=== PATIENT | male | born 1955 | race Caucasian/White ===

== ENCOUNTER 2019-10-23 10:15 | Outpatient (REF) | payer MEDICAID, SELFPAY ==
[2019-10-23 21:28] LABS: HCT 44.6 % (40.0-50.0); HGB 15.5 g/dL (13.5-17.5); Mean Corp. HGB Concentration 34.8 g/dL (32.0-36.0); Mean Corpuscular Hemoglobin 31.7 pg (27.0-33.0); Mean Corpuscular Volume 91.2 fL (80-95); Mean Platelet Volume 11.1 fL (8.0-11.0); Platelet Count 177 x1000/uL (130-400); RBC 4.89 m/cumm (4.50-6.00); RBC Distribution Width 12.9 % (11.8-14.1); White Blood Cell Count 4.66 k/cumm (4.4-10.8)
[2019-10-23 21:29] LABS: ALT 28 U/L (16-63); AST 21 U/L (15-37); Albumin 3.8 g/dL (3.4-5.0); Alkaline Phosphatase 54 U/L (46-116); Anion Gap 9.7 mmol/L (3-11); BUN 10 mg/dL (7-18); Bilirubin, Total 0.6 mg/dL (0.2-1.0); CO2 25.3 mmol/L (21.0-32.0); CREATININE 0.91 mg/dL (0.70-1.30); Chloride 104 mmol/L (98-107); Glucose 113 mg/dL (74-106); Lipase 116 U/L (73-393); Potassium 4.2 mmol/L (3.5-5.1); Sodium 139 mmol/L (136-145); Total Protein 7.3 g/dL (6.4-8.2)
== END 2019-10-23 10:35 ==
LOC: NCHCN 10:15
PROVIDERS: PCP Internal Medicine; Visit Provider Internal Medicine
DX: I10 Essential (primary) hypertension (principal); E66.9 Obesity, unspecified; I25.10 Atherosclerotic heart disease of native coronary artery without angina pectoris; K86.89 Other specified diseases of pancreas
CPT/HCPCS: 80053; 83690; 85027

== ENCOUNTER 2019-11-03 03:43 | Outpatient (CLI) | payer MEDICAID, SELFPAY ==
--- NOTE | 2019-11-03 | DI.CT_ITS ---
EXAM: CT ABDOMEN WO/W CLINICAL HISTORY: OTHER DISEASE OF PANCREAS,K86.89,F/U 02/02/18 [facility] [place]/U PANCREATIC MASS TECHNIQUE: COMPARISON: CT CT ANGIOGRAM ABDOMEN AND PELVIS W CONTRAST (GENERIC) from 12/21/[address] ABD W 1HR PREP from 02/02/2018 FINDINGS: CT examination of the upper abdomen was performed utilizing noncontrast scanning followed arterial an d venous phase imaging with intravenous infusion 100 cc Omnipaque 350 and ingestion dilute barium. Images obtained through the lung bases are unremarkable. The liver and spleen appear normal. Gallbl adder wall appears thickened, there is poor delineation of the gallbladder wall from surrounding fat and the gallbladder lies directly adjacent to hepatic flexure of the colon, no fat plane is clearly d istinguishable at this site. No biliary dilatation seen. Previous scan of January 2018 showed 2 hyperenhancing posterior pancreatic head lesions, measuring 1 4 x 16 millimeters and 13 x 11 millimeters in diameter respectively. On today's examination these me asure about 15 x 18 millimeters in diameter for the lateral lesion 13 x 19 millimeters for the medial lesion. These arm mildly lobulated but well-circumscribed with no gross surrounding fat invasion. No significant portal or peripancreatic adenopathy. Pancreas is otherwise unremarkable. No pancreat ic ductal dilatation. There is an abdominal aortic aneurysm measuring 62 x 48 millimeters in diameter with an aorto iliac e ndograft in place. No evidence of leakage. No retroperitoneal adenopathy. Adrenals and kidneys are unremarkable with no urinary tract calcification or obstruction. Appendix is normal. IMPRESSION: Mild interval increase in size of 2 enhancing posterior pancreatic head masses since 02/02/2018. Ple ase see the above discussion. Poorly defined gallbladder wall, gallbladder wall thickening or mass not excluded, correlation with a bdominal ultrasound or MRCP may be considered.
[2019-11-03] MEDS: Omnipaque 350 MG/ML 100 ML BTL IJ (09:13)
[2019-11-03] MEDS: Normal Saline - Diluent 50 ML VIAL IV (09:14)
[2019-11-03] MEDS: Normal Saline Flush 10 ML SYR IVP (09:14)
== END 2019-11-03 04:03 ==
PROVIDERS: PCP Internal Medicine; Visit Provider Internal Medicine
DX: K86.89 Other specified diseases of pancreas (principal); I71.4 Abdominal aortic aneurysm, without rupture
CPT/HCPCS: 74170; J3490

== ENCOUNTER 2020-12-30 11:06 | Outpatient (REF) | payer MEDICARE, MEDICAID, SELFPAY ==
[2020-12-30 14:32] LABS: HCT 47.7 % (40.0-50.0); HGB 16.3 g/dL (13.5-17.5); MCH 32.5 pg (27.0-33.0); MCHC 34.2 % (32.0-36.0); MPV 10.9 fL (8.0-11.0); Platelet Count 177 10^3/uL (130-400); RBC 5.02 10^6/uL (4.36-5.78); RDW 13.2 % (11.8-14.1); RDW-SD 46.2 fL; WBC 4.25 10^3/uL (4.4-10.8)
[2020-12-30 14:55] LABS: ALT 31 U/L (16-63); AST 26 U/L (15-37); Alkaline Phosphatase 67 U/L (46-116); Anion Gap -0.7 mmol/L (3-11); BUN 16 mg/dL (7-18); CO2 26.7 mmol/L (21.0-32.0); CREATININE 1.2 mg/dL (0.70-1.30); Calcium 9.5 mg/dL (8.5-10.1); Chloride 111 mmol/L (98-107); Glucose 109 mg/dL (74-106); Potassium 4.2 mmol/L (3.5-5.1); Sodium 137 mmol/L (136-145); Total Protein 7.4 g/dL (6.4-8.2)
[2020-12-31 17:37] LABS: Calculated LDL 250 mg/dL (<100); Cholesterol 329 mg/dL (<200); HDL Cholesterol 45 mg/dL (40-60); Triglyceride 172 mg/dL (<150)
== END 2020-12-30 11:07 | disposition home or self-care (01) ==
LOC: NCHCN 11:06
PROVIDERS: PCP Internal Medicine; Visit Provider Family Medicine
DX: I10 Essential (primary) hypertension (principal); E78.5 Hyperlipidemia, unspecified; K86.89 Other specified diseases of pancreas
CPT/HCPCS: 80053; 80061; 85027

== ENCOUNTER 2021-01-20 00:36 | Outpatient (CLI) | payer MEDICARE, MEDICAID, SELFPAY ==
--- NOTE | 2021-01-20 | DI.MRI_ITS ---
Exam(s) MR ABDOMEN WO/W EXAM: MR ABDOMEN WO/W CLINICAL HISTORY: ABNL ABD MRI,R93.5,OTHER DISEASE PANCREAS,K86.89 TECHNIQUE: Multiplanar multisequence MRI was performed with both pre and post contrast infused seque nces. Contrast injected sequences were performed following IV injection of 20 cc of Dotarem. COMPARISON: CT CT ABDOMEN WO/W from 12/16/[address] ABDOMEN WO/W from 12/16/2020 FINDINGS: VISUALIZED LUNG BASES: No pleural effusions evident. There is prominent artifact from the aortic EVAR which renders this study nondiagnostic with respect to the area of concern around the pancreatic head, as discussed on prior CT scan of 12/16/2020 LIVER: No obvious focal hepatic lesions. BILIARY: Gallbladder is contracted. The visualized CBD is not dilated. PANCREAS: Unfortunately the pancreatic head and neck cannot be assessed because of the abundant artif act from the aortic EVAR. SPLEEN: Spleen is not enlarged and there are no intrasplenic lesions. ADRENALS: There are no significant adrenal masses. KIDNEYS: No solid renal masses. No hydronephrosis.No cysts evident. ABDOMINAL AORTA: Aortic EVAR in place. Causes abundant artifact ANTERIOR ABDOMINAL WALL/GI: There is no evidence of significant anterior abdominal wall hernia in the field of view of this study.Is no evidence of obvious bowel obstruction. OSSEOUS: There are no lytic osseous lesions in the field of view of this study. IMPRESSION: 1. Nondiagnostic study. Unfortunately there is abundant artifact from the aortic EVAR which obscures the region of the pancreatic head-uncinate process which is area of concern on recent CT scan. 2. Liver, spleen, kidneys, and adrenals appear unremarkable. 3. Gallbladder is again noted be contracted DATA REPOSITORY:
[2021-01-20] MEDS: Gadoterate meglumine 20 ML VIAL IVP (11:10)
== END 2021-01-20 00:56 ==
PROVIDERS: PCP Internal Medicine; Visit Provider Family Medicine
DX: R93.5 Abnormal findings on diagnostic imaging of other abdominal regions, including retroperitoneum (principal); K86.89 Other specified diseases of pancreas
CPT/HCPCS: 74183

== ENCOUNTER → 2022-11-26 01:02 | Outpatient (CLI) | payer MEDICARE, MEDICAID, SELFPAY ==
--- NOTE | 2022-11-26 | DI.CT_ITS ---
Exam(s) CT ABDOMEN PELVIS WO/W EXAM: CT ABDOMEN PELVIS WO/W CLINICAL HISTORY: PANCREATIC LESION K86.9 TECHNIQUE: Imaging Protocol: Axial computed tomography images with coronal and sagittal reformatted images were created and reviewed CONTRAST MATERIAL: Intravenous: Omnipaque 350 Contrast volume:100 mL Oral: Yes COMPARISON: CT CT ANGIOGRAM ABDOMEN AND PELVIS W CONTRAST (GENERIC) from 12/21/[address] ABD W 1HR PREP from 02/02/[address] ABDOMEN WO/W from 11/03/[address] ABDOMEN WO/W from 12/16/2020 FINDINGS: ABDOMEN: Lung Bases: Normal where visualized. Liver: Normal density. No measurable mass. Portal, Superior Mesenteric, and Splenic Veins: Unremarkable. Gallbladder and Biliary Tract: The gallbladder appears severely contracted. There is no biliary duct al dilatation. Pancreas: There again seen 2 enhancing masses within or adjacent to the pancreatic head. The larger more lateral mass measures 2.9 x 1.9 cm. This compares to 2.2 x 1.6 cm on the prior examination. Th e smaller more medial lesion measures 2.4 x 1.6 cm. This compares to 2 x 1.2 cm on the prior examina tion. These are best appreciated on the arterial images. Spleen: Normal. Adrenals: No masses seen. Kidneys: Normal size, contour and axis. No radiodense stones or obstructive uropathy. Stable right re nal cysts. No follow-up is recommended. Abdominal Aorta: There is again seen an infrarenal abdominal aortic aneurysm and an aorta iliac stent . The stent appears intact. Atherosclerosis of the [place] vessel is noted. Bowel: No evidence of bowel obstruction or bowel wall thickening. There are findings of prior gastri c surgery. Appendix is unremarkable. Peritoneal Cavity: No ascites, collection or mesenteric inflammatory response. No free air. Lymph Nodes: Within normal limits. Bones: Within normal limits for the patient's age. There is a lucency seen in the superior right giovanni tabulum no cortical destruction is seen. Soft Tissues: Unremarkable. There are fat containing bilateral inguinal hernias. PELVIS: Bladder: Symmetric distention, no gross wall thickening. Reproductive Organs: Unremarkable as visualized. Lymph Nodes: Within normal limits. Bones: Within normal limits for the patient's age. IMPRESSION: 1. Slight interval increase in size of both peripancreatic or intraparenchymal pancreatic lesions. S zoila 12/16/2020. 2. Incidental findings in the abdomen and pelvis as described. Unexpected findings RADIATION DOSE DELIVERED: 2,620.52mGy.cm Total DLP 2,620.52mGy.cm Total DLP DATA REPOSITORY: All CT scans at this facility are submitted to the National Radiology Data Registry (NRDR) Dose Index Registry (DIR) with the [employer] ([employer]). RADIATION OPTIMIZATION: All CT scans at this facility use at least one of these dose optimization te chniques: automated exposure control; mA and/or kV adjustment per patient size (includes targeted exa ms where dose is matched to clinical indication); or iterative reconstruction.
[2022-11-26] MEDS: Barium Sulfate 2% W/V-Creamy Vanilla Smoothie 450 ML BTL 900 ML PO (08:41)
[2022-11-26 08:54] LABS: Estimated GFR 81.98 (mL/min/1.73m2)
[2022-11-26] MEDS: Omnipaque 350 MG/ML 500 ML BTL-Imaging package 100 ML IJ (09:36)
[2022-11-26] MEDS: Normal Saline - Diluent 50 ML VIAL IJ (09:37)
== END ==
PROVIDERS: PCP Internal Medicine; Visit Provider Family Medicine
DX: K86.9 Disease of pancreas, unspecified (principal); I71.43 Infrarenal abdominal aortic aneurysm, without rupture
CPT/HCPCS: 74178; 82565